=== PATIENT | female | born 1965 | race Caucasian/White ===

== ENCOUNTER 2019-08-10 14:56 | Observation (INO) ==
[2019-08-10] MEDS ORDERED: ZOFRAN IV PRN (15:18)
[2019-08-10] MEDS ORDERED: TORADOL IV PRN (15:20)
--- NOTE | 2019-08-10 16:57 | Diag Imaging Result Doc PS360 ---
EXAM: US PELVIC NON-OB COMPLETE INDICATION: rt lower quadrant pain, hx of Ovarian cyst TECHNIQUE: COMPARISON: None. FINDINGS: There has been a prior hysterectomy and left oophorectomy. The right ovary remains. The right ovary is grossly normal in echotexture measuring up to 2.7 cm in the greatest dimension. No ovarian cyst or mass is identified. The right ovary exhibits Doppler flow. No pelvic free fluid is visualized. The urinary bladder is grossly unremarkable. IMPRESSION: Prior hysterectomy and left oophorectomy. Grossly normal right ovary. No evidence of acute pathology, otherwise. Electronically signed by Ryan Burgess 08/10/2019 4:54 PM
[2019-08-10] MEDS: MORPHINE IV PRN (17:26)
[2019-08-10] MEDS: NS 1,000 ML IV PRN (17:33)
[2019-08-10] MEDS ORDERED: CITRATE OF MAGNESIA PO ONE (19:48)
[2019-08-10] MEDS ORDERED: CATAPRES PO PRN (19:50)
--- NOTE | 2019-08-10 20:59 | HISTORY AND PHYSICAL ---
CHIEF COMPLAINT: Pain in my right side. HISTORY OF PRESENT ILLNESS: This is a 53-year-old white female who started having right lower quadrant flank pain yesterday about 5:00 p.m. It progressed throughout the night. It seemed to get worse with movement of the stomach, such as walking, twisting, turning. She has a previous history of left renal stone in 2004. She also has a previous history of an ovarian cyst on the right ovary. She has also had a history of dilated colon. She took some Senokot yesterday and had 3 small bowel movements. She has had no real fever or chills. No nausea or vomiting. PAST MEDICAL HISTORY: Surgeries: She has had a hysterectomy with a left oophorectomy. She still has her right ovary. This was in [address] Saleem Gardner. Her current illnesses are none. MEDICATIONS: Singulair 10 mg a day. ALLERGIES: Penicillin, hydrocodone which creates itching. SOCIAL HISTORY: She is a white female. She has 1 son who is a physical therapist here in [place]. Her is employed at [employer] I believe. She does not smoke or drink. FAMILY HISTORY: Remarkable for 2 sisters who are living, ages 51 and 42; one brother living. Neither or none of them have any chronic illnesses. PHYSICAL EXAMINATION: GENERAL: A 53-year-old white female in very moderate to severe distress in the right flank, right lower quadrant, when she moves or turns or lays or sits up. She points to just above the inguinal ligament in the right lower quadrant. She had a near syncopal episode here in the office. HEENT: TMs are clear. Pupils equally round, reactive. Nasal mucosa is moist. Oropharynx is clear. NECK: Supple. LUNGS: Clear. HEART: Regular rate and rhythm. Slightly hyperdynamic beat. ABDOMEN: Soft. There are active bowel sounds. There is no distention. There is no tenderness to movement of the stomach or abdominal musculature. There is no rebound tenderness except in the very low right lower quadrant pain, and it is very equivocal in nature. I can press very deeply in all quadrants. Pelvic tilt is negative. EXTREMITIES: She moves both extremities without difficulty. She stands and pounds her heels on the floor without pain. LABORATORY DATA: Sodium 140, potassium 3.7, BUN and creatinine 16 and 0.8 respectively, glucose 102. Alkaline phos slightly high at 130. GOT 12, GPT 25. White blood cell count 11.4, hemoglobin and hematocrit 15 and 44 respectively, platelets 330,000. Urinalysis: 2+ blood, 5 to 10 red cells, 1 to 5 epithelial cells, trace of mucus. Sonogram of the pelvis shows no appreciable abnormality. CT of the abdomen and pelvis reveals fatty infiltration of the liver, previous hysterectomy. The appendix appears normal. The urinary bladder is slightly distended, but normal. Right ovary shows no abnormality. Left ovary is not identified. There are no gallstones or adjacent inflammatory changes of the gallbladder. There is no hydronephrosis. There are no renal or ureteral stones. IMPRESSION: 1. A 53-year-old white female with very severe spasmodic abdominal pain of uncertain etiology. The major issues, such as renal stone, appendicitis, ovarian cyst, and gallbladder have been essentially eliminated via the normal CT scan. 2. The flat and upright of the abdomen done in my office seemed to demonstrate some stool retention, particularly in the ascending and transverse colon. There does appear to be a loop of transverse colon that extends upward and then downward in a very torturous fashion on the left side. The lower rectosigmoid colon area is free of stool. 3. Hypertension, which is exacerbated certainly by her current pain. PLAN: 1. We will observe overnight. 2. Intravenous fluids of normal saline. 3. Will use intravenous morphine for pain control. 4. Will give a second shot of Toradol 30 mg. 5. We will watch and observe her cautiously. 6. If her symptomatology persists, we will have to do a HIDA scan of the gallbladder. cc: Gael Nixon MD [facility]
[2019-08-11] MEDS: MORPHINE IV PRN (05:58)
[2019-08-11] MEDS: NS 1,000 ML IV PRN (06:09)
[2019-08-11 06:29] LABS: BASO# 0.03 X1000 (0.0-0.2); BASO% 0.3 % (0.0-0.8); EOS# 0.22 X1000 (0.0-0.7); EOS% 2.5 % (0.0-10.0); HEMATOCRIT 42.4 % (37.0-47.0); HEMOGLOBIN 14.3 g/dL (12.0-16.0); IMM GRAN# 0.05 X1000 (0.0-0.04); IMM GRAN% 0.6 % (0.0-0.5); LYMPH# 2.91 X1000 (1.2-3.4); LYMPH% 32.5 % (20.5-51.1); MCH 27.9 PG (27-31); MCHC 33.7 g/dL (33-37); MCV 82.8 FL (81-99); MPV 10.7 FL (7.4-10.4); NEUT# 4.85 X1000 (1.4-6.5); NEUT% 54.1 % (42.2-75.2); PLT 349 X1000 (130-400); RBC 5.12 XMIL (4.2-5.4); RDW 13.3 % (11.5-14.5); WBC 8.96 X1000 (4.8-10.8)
[2019-08-11 06:50] LABS: AGAP 10; ALBUMIN 4.1 g/dL (3.5-5.0); ALKALINE PHOSPHATASE 120 U/L (32-104); BUN 15 mg/dL (8-22); CALCIUM 9.4 mg/dL (8.8-10.2); CHLORIDE 105 mmol/L (98-107); COSMO 282; CREATININE 0.7 mg/dL (0.5-0.9); ESTIMATED GFR > 60; GLUCOSE 98 mg/dL (70-104); GOT 17 U/L (10-30); GPT 25 U/L (10-36); SODIUM 141 mmol/L (136-145); TCO2 26 mmol/L (25-35); TOTAL PROTEIN 6.6 g/dL (6.3-8.3)
[2019-08-11] MEDS ORDERED: LOVENOX SUBQ ONE (13:00)
--- NOTE | 2019-08-11 13:25 | PROGRESS NOTE ---
DATE: 08/11/2019 CHIEF COMPLAINT: Somewhat better. Had good bowel movements during the night. VITAL SIGNS: Temperature 98.4 degrees, pulse 61, respirations 16, blood pressure 158/80, O2 saturation 99%. Input and output: The patient experienced for bowel movements during the night following magnesium citrate. LABORATORY DATA: White blood cell count is 8.96, hemoglobin and hematocrit 14 and 42, MCV 82. Sodium 141, potassium 4.0, BUN and creatinine 15 and 0.7 respectively. Blood sugar 98. Alkaline phosphatase is down to 120. REPORTS: Pelvic sonogram demonstrated normal right ovary and no evidence of acute pathology. She has had a hysterectomy and left oophorectomy. Please see CT report from yesterday on H and P. PHYSICAL EXAMINATION: The patient is awake and alert. She states that she is essentially pain free following an IV Toradol injection. She does have tenderness to the right inguinal ligament. She has some tenderness extending down the medial aspects of the right thigh quadriceps. She has no edema of the legs. There is no erythema. IMPRESSION: Persistent right lower quadrant abdominal pain which now seems to have localized around the inguinal ligament and medial thigh area. We have no findings that would be consistent with a problem or difficulty here. Concerned about the probability of deep venous thrombosis but clinically does not have all the concerns of that. We also could be dealing with a possible shingles outbreak but we see no overlying rash at this point. PLAN: 1. We will obtain a venous Doppler flow study of the right lower extremity. 2. We will prophylax with Lovenox. 3. We will continue current Toradol p.r.n. 4. Hope will be discharged later this evening or in the morning. All these things were discussed with the patient and her at bedside. cc: Gael Nixon MD
--- NOTE | 2019-08-11 14:40 | Vascular Study Report ---
Venous U/S Right Leg - 08/11/2019 INDICATION: right medial thigh pain TECHNIQUE: COMPARISON: None FINDINGS: The veins of the right leg are fully compressible. There is normal color and pulse wave Doppler signal. No abnormal mass or fluid collection. No adenopathy. IMPRESSION: Negative exam. Electronically signed by Brady Gamez 08/11/2019 2:37 PM
[2019-08-11 15:43] VITALS: BP 161/99
[2019-08-11] MEDS ORDERED: TORADOL IV ONE (15:52)
[2019-08-11] MEDS ORDERED: SOLU-MEDROL IV ONE (16:00)
--- NOTE | 2019-08-12 01:20 | DISCHARGE SUMMARY ---
ADMISSION DATE: 08/10/2019 DISCHARGE DATE: 08/11/2019 PRIMARY DISCHARGE DIAGNOSES: 1. Acute abdominal pain. 2. Right groin strain. PRIMARY PROCEDURE PERFORMED: 1. CT of the abdomen with contrast. 2. Sonogram of the pelvis. 3. Doppler venous flow study of the right lower extremity. DISPOSITION: The patient will be discharged in good condition. She will follow up with me on here in the office. and were instructed to contact me at any time following discharge if necessary. DISCHARGE MEDICATIONS: 1. Toradol 10 mg one 4 times a day for 5 days p.r.n. 2. Tramadol 50 mg, #40, one or 2 q.4 hours p.r.n. pain. She is instructed to do no strenuous activity. IMAGIN. CT of the abdomen and pelvis with contrast reveals normal appearing gallbladder, normal appearing appendix, normal appearing right ovary. Uterus and left ovary are absent. There is no ureteral stone or hydronephrosis noted. 2. Pelvic sonogram reveals post hysterectomy, left oophorectomy. Normal-appearing right ovary. No free fluid. LABORATORY DATA: White blood cell count 8.96, hemoglobin and hematocrit 14 and 42, respectively, MCV 82, platelets 349,000; neutrophils 54,000. Sodium 141, potassium 4.0, BUN creatinine 15 and 0.7, respectively. Creatinine clearance greater than 60. Alkaline phos 120, AST 17, ALT 25, total protein 6.6. HOSPITAL COURSE: The patient was admitted. IV fluids of normal saline was started. Patient was kept on clear liquids. She was given intravenous morphine 2 mg q.4 hours p.r.n. pain, Toradol 30 mg IV q.6 hours p.r.n. pain. The Toradol seemed to help her more than the morphine. Her pain seemed to change during the course of the hospital stay. Her abdomen was soft and nontender to palpation. There was no rebound. Pain seemed to localize more over the right inguinal ligament and proximal quadriceps area. Concern for DVT was had and a Doppler venous flow study was performed, which revealed no evidence for deep vein thrombosis. There was no lymphadenopathy in the inguinal area. Patient's condition improved. She was given a discharge dose of IV Solu-Medrol of 120 mg and 30 mg of Toradol. She will be discharged as stated. Arrangements will be made to see her in my office for follow up . was instructed to call me at any time if she has trouble before then. We will consider outpatient physical therapy if necessary. cc: Gael Nixon MD
== END 2019-08-11 18:45 | disposition home or self-care (01) ==
LOC: INTOOBSV 14:56 → P.DIRADM 14:56 → P.MEDSURG 15:50
PROVIDERS: ADMIT Family Medicine; ATTEND Family Medicine